=== PATIENT | male | born 1995 | race Caucasian/White ===

== ENCOUNTER 2018-01-28 23:11 | Emergency (ER) | payer OTHER | END 2018-01-29 01:00 | disposition home or self-care (01) | LOC: ER 23:11 | DX: S93.401A Sprain of unspecified ligament of right ankle, initial encounter (principal); X50.9XXA Other and unspecified overexertion or strenuous movements or postures, initial encounter; Y93.89 Activity, other specified; Y99.8 Other external cause status; Y92.89 Other specified places as the place of occurrence of the external cause | CPT/HCPCS: 73610; 99284; L4350 ==